=== PATIENT | female | born 1975 | race Caucasian/White ===

== ENCOUNTER → 2022-08-04 10:59 | Outpatient (REF) | payer OTHER, SELFPAY ==
--- NOTE | 2022-08-04 11:07 | CA_ITS ---
Transthoracic Echocardiogram Patient (Last, First, Middle): Mayela Bhat, Gender: Female Date of : 1975 Age: 46 Procedure Date: 08/04/2022 Procedure Type: Transthoracic Echocardiogram Location: [facility] Height: 157.48 cm Weight: 86.18 kg BSA: 1.87 m2 Heart Rate: bpm BP: 132 / 78 mmHg [employer] Officer: TO Referring MD: Cecelia RO Symptoms: YOUSSEF R06.09 Study Quality: Fair ECG Rhythm: Sinus Conclusions: - The left ventricular systolic function is normal. The calculated ejection fraction is 67% by biplane method. - No obvious valvular pathology seen on this study. Findings Left Ventricle Normal left ventricular cavity size. There is mildly increased left ventricular wall thickness. The left ventricular systolic function is normal. The calculated ejection fraction is 67% by biplane method. There is no evidence of regional wall motion abnormalities. Diastolic function is normal for age. Right Ventricle Normal right ventricular cavity size and systolic function. Atria Both atria are normal in size. Aortic Valve There is a normal trileaflet aortic valve. There is mild calcification of the aortic valve. There is no aortic valve stenosis. There is trace (trivial) aortic valve regurgitation. Mitral Valve The mitral valve appears normal. There is no mitral valve regurgitation. There is no mitral valve stenosis. Pulmonic Valve The pulmonic valve is likely normal. Tricuspid Valve Normal tricuspid valve structure. There is trace tricuspid valve regurgitation. There is no evidence of pulmonary hypertension. Great Vessels The asc aorta is normal in size. Venous The inferior vena cava is normal in size and collapses greater than 50% with inspiration. Pericardium/Pleural There is no evidence of pericardial effusion. Prior Study Comparison No prior study available for comparison. Recommendations, Care & Conclusions No obvious valvular pathology seen on this study. Measurements 2D Linear Measurements IVSd: 1.22 0.6-0.9/0.6-1.0 cm LVIDd: 4.01 3.9-5.3/4.2-5.9 cm LVIDd Index: 2.14 2.4-3.2/2.2-3.1 cm/m2 LVIDs: 2.27 2.0-3.6 cm LVPWd: 1.10 0.7-1.1 cm LA Diam: 2.90 2.7-3.8/3.0-4.0 cm LAIDs Index: 1.55 1.5-2.3 cm/m2 LV Mass: 196.72 67-162/88-224 g LV Mass Index: 105.20 43-95/49-115 g/m2 LVOT Diam: 2.00 3.0+(-)1.3 cm 2D Systolic Function EF 4C: 67.00 >55% EF 2C: 67.60 >55% EF BiP: 67.40 >55% Mitral Valve MV Pk E: 1.07 MV PK A: 0.52 MV Decel Time: 178.00 E/A: 2.10 E'Lateral: 10.10 E'Medial: 6.96 E/E' Med: 15.40 E/E' Lat: 10.60 PHT: 52.00 MVA PHT: 4.23 Decel Sully: 6.01 Aortic Valve AoV Pk Andrea: 1.38 AoV Mn Andrea: 0.95 AoV VTI: 0.32 AoV Pk Grad: 8.00 Aov Mn Grad: 4.00 JAYJAY Cont.VTI: 2.23 LVOT LVOT Pk Andrea: 1.09 LVOT Mn Andrea: 0.69 LVOT VTI: 0.23 LVOT Pk Grad: 5.00 LVOT Mn Grad: 2.00 LVOT Diam: 2.00 LVOT Area: 3.14 Diastolic Function MV Pk E: 1.07 MV Pk A: 0.52 E/A: 2.10 E'Medial: 6.96 E/E' Med: 15.40 E' Laterial: 10.10 E/E' Lat: 10.60 Right Ventricle TAPSE (mm): 23.00 TVS' Andrea: 10.20 Tricuspid Valve TR Pk Andrea: 1.94 TR Pk Grad: 15.00 RA Press: 3.00 RVSP: 18.00 Great Vessels Aorta Sinus of Valsalva: 3.31 2.0-3.[address] [place]: 2.51 1.7-3.4 cm Ao Asc: 3.50 2.1-3.4 cm Ao Arch: 3.40 Updated in Other Vendor System with Status of Final Kobe Matute MD electronically signed on 08/05/2022 11:23:38 AM with status of Final
== END ==
LOC: HO.CARD 10:59
PROVIDERS: Visit Provider Nurse Practitioner Family
DX: R06.09 Other forms of dyspnea (principal)
CPT/HCPCS: 93306